=== PATIENT | female | born 1960 | race Two or more races ===

== ENCOUNTER 2021-02-24 14:13 | Emergency (ER) | payer MEDICAID, OTHER ==
[~2021-02-24] VITALS: Ht 162.6 cm; Wt 99.8 kg
[2021-02-24 16:25] VITALS: BP 129/69
[2021-02-24] MEDS ORDERED: KETOROLAC TROMETH 60MG/2ML VIAL IM ONE (17:00)
== END 2021-02-24 17:45 | disposition home or self-care (01) ==
LOC: ER 14:13 → EDBD 14:13 → ER 17:45
DX: S39.011A Strain of muscle, fascia and tendon of abdomen, initial encounter (principal); S29.012A Strain of muscle and tendon of back wall of thorax, initial encounter; E27.9 Disorder of adrenal gland, unspecified; V49.49XA Driver injured in collision with other motor vehicles in traffic accident, initial encounter; Y93.89 Activity, other specified; Y92.488 Other paved roadways as the place of occurrence of the external cause; Y99.8 Other external cause status
CPT/HCPCS: 71046; 74176; 96372; 99284; J1885